=== PATIENT | female | born 1990 | race Caucasian/White ===

== ENCOUNTER 2016-06-06 10:19 | Emergency (ER) | payer BC ==
[2016-06-06 10:43] LABS: BASO # 0.1 10_X3_uL (0.0-0.1); BASO % 0.8 % (0.1-1.2); EOS # 0.3 10_X3_uL (0.0-0.4); EOS % 2.4 % (0.7-5.8); GRAN # 6.7 10_X3_uL (1.6-6.1); GRAN % 52.7 % (34.0-71.1); HEMATOCRIT 40.4 % (34-45); HEMOGLOBIN 13.5 g/dL (11.2-15.7); LYMPH # 4.6 10_X3_uL (1.2-3.7); LYMPH % 36.1 % (19.3-51.7); MEAN CORPUSCULAR HEMOGLOBIN 28.7 pg (27.0-33.0); MEAN CORPUSCULAR HGB CONC 33.4 g/dL (32.0-36.0); MEAN CORPUSCULAR VOLUME 85.8 fL (79-95); MEAN PLATELET VOLUME 9.5 fl (7.5-11.5); PLATELET COUNT 369 x10_3/uL (182-369); RED BLOOD COUNT 4.71 x10_6/uL (3.9-5.2); RED CELL DISTRIBUTION WIDTH 14.4 % (11.7-14.4); WHITE BLOOD COUNT 12.7 x10_3/uL (4.0-10.0)
[2016-06-06 10:52] LABS: BLOOD UREA NITROGEN 16 mg/dL (7-18); CALCIUM 8.7 mg/dL (8.7-10.7); CARBON DIOXIDE 20 mmol/L (21-32); CREATININE 0.7 mg/dL (0.6-1.3); GLUCOSE,RANDOM 100 mg/dL (70-99); POTASSIUM 3.9 mmol/L (3.5-5.1); SODIUM 138 mmol/L (136-145)
[2016-06-06 10:52] LABS: URINE BILIRUBIN NEGATIVE (NEGATIVE); URINE BLOOD 2+ (NEGATIVE); URINE GLUCOSE (UA) NORMAL (NORMAL); URINE KETONE NEGATIVE (NEGATIVE); URINE LEUKOCYTE ESTERASE TRACE (NEGATIVE); URINE NITRATE NEGATIVE (NEGATIVE); URINE PROTEIN TRACE (NEGATIVE); URINE RBC 0-5 /[HPF] (0-2); URINE SQUAMOUS EPITHELIAL CELL >20 /[HPF] (NONE SEEN); URINE WBC 0-5 /[HPF] (0-5); UROBILINOGEN NORMAL mg/dL (<1.0)
[2016-06-06 10:53] LABS: URINE BACTERIA FEW (NONE SEEN)
== END 2016-06-06 14:26 | disposition home or self-care (01) ==
LOC: ER 10:19
PROVIDERS: Internal Medicine
DX: N13.2 Hydronephrosis with renal and ureteral calculous obstruction (principal); R10.9 Unspecified abdominal pain; Z79.899 Other long term (current) drug therapy
CPT/HCPCS: 36415; 74150; 80048; 81001; 84703; 85025; 96365; 96375; 96376; 99070; 99284-25